=== PATIENT | male | born 1990 | race Hispanic/Latino ===

== ENCOUNTER 2016-05-05 11:23 | Emergency (ER) | payer BC ==
[2016-05-05 11:33] VITALS: BP 130/77; PULSE 84; TEMP 97; O2SAT 99; BMI 28.8
[2016-05-05] MEDS ORDERED: Lidocaine 2% Inj (20ml) SC ONE (12:17)
[2016-05-05] MEDS ORDERED: Lidocaine 1% Inj (20ml) ONE (12:22)
--- NOTE | 2016-05-05 12:24 | ED PDOC ---
Upper Extremity Pain/Injury Time Seen by Provider: 05/05/16 12:07 Chief Complaint (Provider): LAC to right hand History Per: Patient History/Exam Limitations: no limitations Onset/Duration Of Symptoms: Hrs (x1) Current Symptoms Are (Timing): Still Present Severity: Mild Additional Complaint(s): Patient is a 25 year old male presenting to the ED complaining of a laceration to the right hand sustained 1 hr ago. Patient reports while opening a box, he cut himself with a knife. Patient is right hand dominant. Tetanus up to date. Patient denies any numbness or tingling to affected area, he is able to move right hand, wrist and all right digits with no limitation. PMD: none Past Medical History Reviewed: Historical Data, Nursing Documentation, Vital Signs Vital Signs: Last Vital Signs Temp 97 F L 05/05/16 11:32 Pulse 84 05/05/16 11:32 Resp BP 130/77 05/05/16 11:32 Pulse Ox 99 05/05/16 11:32 - Medical History PMH: No Chronic Diseases - Surgical History Other surgeries: cosmetic removal of excess skin after weight loss - Family History Family History: States: No Known Family Hx - Living Arrangements Living Arrangements: With Family - Social History Current smoker - smoking cessation education provided: No Alcohol: None Drugs: Denies - Immunization History Hx Tetanus Toxoid Vaccination: Yes - Home Medications Home Medications: Ambulatory Orders Medication Instructions Recorded No Known Home Med 05/05/16 - Allergies Allergies/Adverse Reactions: Allergies Allergy/AdvReac Type Severity Reaction Status Date / Time No Known Allergies Allergy Verified 05/05/16 12:17 Review of Systems ROS Statement: Except As Marked, All Systems Reviewed And Found Negative Constitutional: Negative for: Fever Musculoskeletal: Positive for: Other (lac to right hand) Neurological: Negative for: Numbness Physical Exam - Reviewed Nursing Documentation Reviewed: Yes Vital Signs Reviewed: Yes - Physical Exam Appears: Positive for: Well, Non-toxic, No Acute Distress Head Exam: Positive for: ATRAUMATIC, NORMAL INSPECTION, NORMOCEPHALIC Skin: Positive for: Normal Color, Warm, DRY Extremity: Positive for: Normal ROM (full ROM right digits and wrist ), Capillary Refill (less than 2 seconds), Other (1 cm LAC to the dorsum of right hand no active bleeding, Sensation intact). Negative for: Deformity Neurologic/Psych: Positive for: Alert, Oriented - ECG O2 Sat by Pulse Oximetry: 99 (RA) Pulse Ox Interpretation: Normal Medical Decision Making Medical Decision Making: Time: 12:10 Impression: LAC to dorsum of right hand Plan: LAC Repair See procedure note. Wound care instructions given. Advised wound check in 2 days, suture removal 10 days. Scribe Attestation: Documented by Zoila Capone acting as a scribe for Melissa Pringle. Provider Attestation: All medical record entries made by the Scribe were at my direction and personally dictated by me. I have reviewed the chart and agree that the record accurately reflects my personal performance of the history, physical exam, medical decision making, and the department course for this patient. I have also personally directed, reviewed, and agree with the discharge instructions and disposition. Disposition - Clinical Impression Clinical Impression: Superficial laceration of hand - Patient ED Disposition Is Patient to be Admitted: No Counseled Patient/Family Regarding: Diagnosis, Need For Followup - Disposition Referrals: Frantz Yang MD [Staff Provider] - Disposition: Routine/Home Disposition Time: 12:47 Condition: STABLE Additional Instructions: Keep wound clean and dry. Advil as needed for pain. Wound check 2-3 days. Suture removal 10 days. Instructions: Laceration (ED), Care For Your Stitches (ED) Laceration - Laceration Repair Right hand laceration Wound Length (In cm): 1 Description Of Wound: Linear Wound Cleansed With: Betadine, Sterile Saline Anesthesia: Lidocaine 1% Wound Examination: Irrigated With Saline, No FB With Wound Exploration, No Tendon Injury With Wound Exploration Wound Closure: Suture (3 ) Suture Technique And Material Used: Interrupted, Nylon Wound Complexity: Simple
[2016-05-05 12:42] VITALS: RESP 16
== END 2016-05-05 12:57 | disposition home or self-care (01) ==
LOC: H.ER 11:23
DX: S61.411A Laceration without foreign body of right hand, initial encounter (principal); W26.0XXA Contact with knife, initial encounter; Y93.9 Activity, unspecified; Y92.9 Unspecified place or not applicable